=== PATIENT | female | born 1985 | race Caucasian/White ===

== ENCOUNTER 2018-04-07 22:09 | Inpatient (IN) | payer OTHER ==
--- NOTE | 2018-04-07 23:02 | HP ---
General Information - Reason for Visit Pt reports SROM to clear fluid at 2030. Denies contractions. - General Information Maternal Age: 32 Grav: 3 Para: 1 SAB: 0 IEA: 1 Estimated Due Date: 04/21/18 Determined By: LMP Gestational Age in Weeks/Days: 38 0/7 Maternal Blood Type and Rh: A Negative - Results this Serology/RPR Result: Non-Reactive Rubella Result: Non-Immune HBsAg Result: Negative HIV Result: Negative GBS Culture Result: Negative Past Medical History Delivery History: Hx Uncomplicated Vaginal Delivery Pertinent Past Medical History: See Records - asthma, migraines Pertinent Past Surgical History: None Pertinent Family History: Non-Contributory - Antepartal Records Antepartal Records: Reviewed, Complicated by: - placenta previa- resolved, Rh negative, Rubella non-immune Review of Systems Constitutional: Comfortable CV Complaint: No Respiratory: Shortness of Breath: No Gastrointestinal: No Nausea/Vomiting, Normal Bowel Movement Genitourinary: Leaking Fluid, No Dysuria, No Bleeding Musculoskeletal: No Complaint, No Epigastric Pain Neurological: No Headache, No Visual Changes Movement: Normal Exam Allergies/Adverse Reactions: Allergies No Known Allergies Allergy (Verified 04/07/18 23:02) T-97.7, P-87, O2-98%, R-16, BP-137/70 - Measurements Height: 5 ft 7 in Weight: 79.379 kg Body Mass Index (BMI): 27.3 Pre- Weight: 72.575 kg - Exam Breast: Breast Exam Deferred CVA: No CVA Tenderness Extremities: No Edema Heart: Normal Rhythm/Heart Sounds HEENT: No Significant Findings Lungs: Clear Bilaterally Rectal: Rectal Exam Deferred Reflexes: DTR 2+ Thyroid: No Thyromegaly - Abdominal Exam Abdomen Exam: Non-Tender - Ultrasound/Biophysical Profile Ultrasound Status: Not Done Targeted Exam Findings See L&D Outpatient Visit Provider Note for Findings: N/A - Cervical exam deferred as pt prefers expectant management Membrane Status: SROM Amniotic Fluid Evaluation: Gross Rupture Bleeding/Discharge: None EFM Findings - External Monitor Findings Baseline Heart Rate: 130 External Monitor Findings: Accelerations Present, No Pattern of Variable or Late Decelerations, Variability Moderate, Baseline Stable Contractions: Irregular, Mild, 45-90 Seconds Contraction Frequency: 15-20 minutes Assessment/Plan - Assessment 32 year old at 38 0/7 weeks gestation with prelabor rupture of membranes , clear fluid, GBS negative, no evidence of acidemia. - Plan Plan: Admit - Anticipate Vaginal Delivery Plan Comment: Discussed options with pt and , including initiation of augmentation with Pitocin vs expectant management. Counseled pt that the longer membranes are ruptured prior to delivery, the greater the risk of infection. Pt strongly prefers expectant management, and to await active labor. If labor not becoming active by morning, will strongly recommend augmentation of labor. - Date/Time of Admission Date of Admission: 04/07/18 Time of Admission: 22:26
[2018-04-08] MEDS ORDERED: Misoprostol TAB* 100 MCG PO ONE (09:00)
--- NOTE | 2018-04-08 09:46 | PN ---
Progress Note - Progress Note Date of Service: 04/08/18 SOAP: Subjective: [Pt denies contractions, reports continued LOF, +FM, denies VB] Objective: [T:97.9, O2: 100%, BP: 121/70, P:94 FHT: 140 bpm, +accels, -decels, moderate variability, no ctx. cervix: /ballotable] Assessment: [32 y.o. , VSS, afebrile, PROM, 38w1d EGA] Plan: [1) Reviewed plan with pt and risks versus benefits pt elects to continue with misoprostol for PROM 2) Reviewed position changes for descent 3) Reevaluate PRN]
[2018-04-08] MEDS ORDERED: Dinoprostone* 10 MG VAG.SUPP VAGINAL ONE (20:00)
[2018-04-08] MEDS ORDERED: Promethazine INJ(RESTRICTED)* 25 MG/ML 1 ML VIAL IM ONE (20:01)
[2018-04-08] MEDS ORDERED: Nalbuphine* 10 MG/ML 1 ML VIAL IM ONE (20:01)
--- NOTE | 2018-04-08 20:14 | PN ---
Progress Note - Progress Note Date of Service: 04/08/18 SOAP: Subjective: [Pt reports ctx decreasing in frequency but increasing in intensity until vaginal exam. -VB, +FM, +LOF] Objective: [BP: 114/67, P:80, R:16, T:98.8 FHT: baseline 140 bpm, + accels, -decels, moderate variability, ctx q 3 min cervix: 1/50/ballotable] Assessment: [32 y.o. , 38w1d EGA, PROM, early labor] Plan: [1) Reviewed options and pt elects to continue with cervical ripening. Pt iron after exam, will continue to monitor, if ctx stop cervidil will be placed. Reviewed R/B with pt. 2) Reevaluate in 1 hour or sooner PRN 3) Therapeutic rest PRN]
[2018-04-09 11:13] LABS: ABS Basophils 0 10^3/ul (0-0.2); ABS Eosinophils 0.1 10^3/ul (0-0.6); ABS Lymphocytes 1.3 10^3/ul (1.0-4.8); ABS Monocytes 0.4 10^3/ul (0-0.8); ABS Neutrophils 7.7 10^3/ul (1.5-7.7); ABS Nucleated RBC 0 10^3/ul; Eosinophil % 0.9 %; Hematocrit 34 % (35-47); Hemoglobin 11.5 g/dl (12.0-16.0); Lymphocyte % 13.4 %; Mean Corpuscular HGB Conc 34 g/dl (31-36); Mean Corpuscular Hemoglobin 28 pg (27-31); Mean Corpuscular Volume 82 fL (80-97); Mean Platelet Volume 8.4 fL (7.4-10.4); Nucleated Red Blood Cells % 0; Platelet Count 218 10^3/ul (150-450); Red Blood Count 4.12 10^6/ul (4.00-5.40); Red Cell Distribution Width 14 % (10.5-15); White Blood Count 9.5 10^3/ul (3.5-10.8)
--- NOTE | 2018-04-09 11:14 | PN ---
Progress Note - Progress Note Date of Service: 04/09/18 SOAP: Subjective: [Pt reports no contractions, pt rested overnight, does not remember losing cervidil overnight.] Objective: [BP: 123/65, P:64, R:16, T:97.7 FHT: 135 bpm, + accels, -decels, moderate variability, ctx 2-3 min, mild cervix: 2/80/-2] Assessment: [32 y.o. , PROM] Plan: [1) Reviewe R/B of mgmt options and pt consents to continue with pitocin augmentation low dose 2) Encourage position changes and ambulation PRN]
[2018-04-09] MEDS ORDERED: Oxytocin in LR* 20 UNITS/1,000 ML BAG IVPB ONE (11:15)
[2018-04-09] MEDS ORDERED: Docusate CAP* 100 MG PO PRN (11:49)
[2018-04-09] MEDS ORDERED: Oxytocin in LR* 20 UNITS/1,000 ML BAG IVPB SCH ×2 (12:00→22:00)
--- NOTE | 2018-04-09 16:41 | PN ---
Progress Note - Progress Note Date of Service: 04/09/18 SOAP: Subjective: [Pt reports ctx increasing in intensity and frequency. Pt coping well] Objective: [BP: 115/75, T:99.2, P:84, pitocin at 5 FHT: 145 bpm, +accels, -decels, moderate variability ] Assessment: [32 y.o. , PROM, pitocin augmentation, Cat 1 NST] Plan: [1) Hydrotherapy 2) cont current care]
[2018-04-09] MEDS ORDERED: Promethazine INJ(RESTRICTED)* 25 MG/ML 1 ML VIAL IV PRN (17:15)
[2018-04-09] MEDS ORDERED: Nalbuphine* 10 MG/ML 1 ML VIAL IV PRN (17:15)
[2018-04-09] MEDS ORDERED: Promethazine INJ(RESTRICTED)* 25 MG/ML 1 ML VIAL ONE (17:18)
[2018-04-09] MEDS ORDERED: Nalbuphine* 10 MG/ML 1 ML VIAL ONE (17:18)
[2018-04-09] MEDS ORDERED: OBEPIDURAL* 250 ML EPIDURAL ONE (17:26)
[2018-04-09] MEDS ORDERED: Sodium Citrate/Citric Acid* 15 ML UDC PO PRN (18:45)
[2018-04-09] MEDS ORDERED: Famotidine TAB* 20 MG PO PRN (18:45)
[2018-04-09] MEDS ORDERED: Phenylephrine IV* 40 MCG/ML 10 ML SYRINGE IV PUSH PRN (18:45)
[2018-04-09] MEDS ORDERED: OBEPIDURAL* 250 ML EPIDURAL SCH (19:00)
[2018-04-09] MEDS ORDERED: Ibuprofen TAB* 600 MG ONE (21:46)
[2018-04-09] MEDS ORDERED: Witch Hazel PAD* JAR TOPICAL PRN (21:50)
[2018-04-09] MEDS ORDERED: Dibucaine 1% 28.35 GM TUBE PR PRN (21:50)
[2018-04-09] MEDS ORDERED: Acetaminophen TAB* 325 MG PO PRN (21:50)
[2018-04-09] MEDS: Ibuprofen TAB* 600 MG PO PRN (21:50)
[2018-04-09] MEDS ORDERED: Glycerin ADULT SUPP PR PRN (21:50)
[2018-04-09] MEDS ORDERED: Measles, Mumps,Rubella VACC* 0.5 ML/VIAL SUBCUT ONE (21:50)
[2018-04-09] MEDS ORDERED: RHO D Immune Globulin (HUMAN)* 300 MCG = 1,500 I.U. INJ IM ONE (21:50)
--- NOTE | 2018-04-09 22:16 | PROCNOTE ---
[facility]: Delivery Note - Delivery A Date of : 04/09/18 Time of : 21:01 Sex: Male Score 1 Minute: 9 Score 5 Minutes: 9 Gestational Age in Weeks and Days at Delivery: 38 Weeks and 2 Days Delivery Method: Spontaneous Vaginal Labor: Spontaneous Amniotic Fluid: Clear Estimated Blood Loss: 300 Anesthesia/Analgesia: CEI for Labor Delivered By: Mello Joyner - Nursery Level of Nursery: Regular/Bedside - Perineum Perineal Injury: 1st Degree Perineal Injury Comment: Right labial/periurethral laceration, repaired with 3- 0 Rapid as well. Perineal Repair: By Delivering Practioner - Events Delivery Events of Note: Pitocin During Labor, Pitocin Only After Delivery, ROM > 24 Hours - Additional Delivery Notes Additional Delivery Notes: ROM approx 48 hours with slow progression of early labor after induction attempt with misoprostal, Cervidil then pitocin. Patient received epidural as desired at approx 1800 with good pain relief and quick progression to complete with pressure noted by patient. Patient encouraged to begin pushing at approx 2131. LOL 5'30", pushed 30 min. Baby born OA to KIARRA, shoulders following with maternal efforts, delivered into mothers arms and she brought to chest. Baby with spontaneous respirations, HR >110. Placenta followed with gentle cord traction @ 2107. Cord then clamped doubly and cut by FOB. Fundus firm to massage and pitocin infusing. EBL 300ml. Repair as above. Mother and baby stable. Name yandel.
[2018-04-10 07:21] LABS: ABS Basophils 0 10^3/ul (0-0.2); ABS Eosinophils 0 10^3/ul (0-0.6); ABS Lymphocytes 1.7 10^3/ul (1.0-4.8); ABS Monocytes 0.7 10^3/ul (0-0.8); ABS Neutrophils 8.6 10^3/ul (1.5-7.7); ABS Nucleated RBC 0 10^3/ul; Eosinophil % 0.4 %; Hematocrit 27 % (35-47); Hemoglobin 8.8 g/dl (12.0-16.0); Lymphocyte % 15.7 %; Mean Corpuscular HGB Conc 33 g/dl (31-36); Mean Corpuscular Hemoglobin 27 pg (27-31); Mean Corpuscular Volume 82 fL (80-97); Mean Platelet Volume 7.9 fL (7.4-10.4); Nucleated Red Blood Cells % 0.1; Platelet Count 183 10^3/ul (150-450); Red Blood Count 3.25 10^6/ul (4.00-5.40); Red Cell Distribution Width 14 % (10.5-15); White Blood Count 11.1 10^3/ul (3.5-10.8)
[2018-04-10] MEDS: Docusate CAP* 100 MG PO SCH ×3 (09:44→21:07)
[2018-04-10] MEDS: Ferrous Gluconate TAB* 324 MG TAB PO SCH ×2 (10:03→21:07)
[2018-04-10] MEDS: Ibuprofen TAB* 600 MG PO PRN (17:46)
[2018-04-11] MEDS: Docusate CAP* 100 MG PO SCH (08:31)
[2018-04-11] MEDS: Ferrous Gluconate TAB* 324 MG TAB PO SCH (08:31)
[2018-04-11] MEDS: Ibuprofen TAB* 600 MG PO PRN (08:31)
[2018-04-11 08:35] VITALS: BP 103/73
== END 2018-04-11 12:27 | disposition home or self-care (01) | DRG 560 ==
LOC: MCHOBOUT 22:09 → MCHOB 22:26
PROVIDERS: ADMIT Midwife; ATTEND Midwife
PROC: 10E0XZZ Delivery of Products of Conception, External Approach (ICD-10-PCS; principal; 2018-04-09)
PROC: 0HQ9XZZ Repair Perineum Skin, External Approach (ICD-10-PCS; 2018-04-09)
DX: O42.12 Full-term premature rupture of membranes, onset of labor more than 24 hours following rupture (principal); Z37.0 Single live birth; O70.0 First degree perineal laceration during delivery; O90.81 Anemia of the puerperium; D64.9 Anemia, unspecified; Z3A.38 38 weeks gestation of pregnancy
CPT/HCPCS: 36415; 84112; 85025; 85461; 86850; 86870; 86880; 86900; 86901; A9270-GY; J2300; J2550; J2790; S0191

== ENCOUNTER 2019-08-20 07:30 | Day surgery (SDC) | payer OTHER ==
[~2019-08-20 07:30] MED LIST: DOXYcycline IV 200 MG in NS 250 mL *Pre-Op OBGYN IVPB ONE; Dexamethasone IV* 4 MG/ML 1 ML (4 MG) ONE; KETAMINE HCL* 50 MG/ML 10 ML VIAL ONE; Ketorolac INJ* 30 MG/ML 1 ML VIAL ONE; Lidocaine 2% PF * 5 ML VIAL ONE; Midazolam* 1 MG/ML 5 ML VIAL (5 MG) ONE; Ondansetron INJ* 2 MG/ML VIAL ONE; Propofol* 10 MG/ML 20 ML BTL ONE; Succinylcholine* 20 MG/ML 10 ML VIAL ONE; fentaNYL* 50 MCG/ML 2 ML VIAL (100 MCG VIAL) ONE
[2019-08-20] MEDS ORDERED: Buffered Lidocaine 1% SYRIN* 1 ML/SYRINGE INTRADERM ONE ×2 (07:38→07:43)
[2019-08-20] MEDS ORDERED: Famotidine IV* 10 MG/ML 2 ML (20 mg) ONE (07:38)
[2019-08-20] MEDS ORDERED: Famotidine IV* 10 MG/ML 2 ML (20 mg) IV ONE (07:43)
[2019-08-20] MEDS ORDERED: Lactated Ringers 1000 ML Bag* 1,000 ML IV SCH (08:00)
[2019-08-20] MEDS ORDERED: Midazolam* 1 MG/ML 2 ML VIAL (2 MG) ONE (08:50)
[2019-08-20] MEDS ORDERED: Chloroprocaine 2%* 20 ML VIAL ONE (08:53)
[2019-08-20] MEDS ORDERED: oxyCODONE/Acetamin 5/325 MG* TAB PO PRN (09:48)
[2019-08-20] MEDS ORDERED: Naloxone* 0.4 MG/ML 1 ML VIAL IV PRN (09:48)
[2019-08-20] MEDS ORDERED: Ondansetron INJ* 2 MG/ML VIAL IV PRN (09:48)
[2019-08-20] MEDS ORDERED: fentaNYL* 50 MCG/ML 2 ML VIAL (100 MCG VIAL) IV PRN (09:48)
[2019-08-20 11:53] VITALS: BP 117/56
--- NOTE | 2019-08-20 19:57 | OP ---
OPERATIVE REPORT: DATE OF OPERATION: 08/20/19 - SDS DATE OF : 83 SURGEON: Galo Modi MD ANESTHESIOLOGIST: Dr. Hammer. ANESTHESIA: Spinal. PRE-OP DIAGNOSIS: Missed at about 10 weeks' gestation. POST-OP DIAGNOSIS: Missed at about 10 weeks' gestation. OPERATIVE PROCEDURE: Suction dilation and curettage. ESTIMATED BLOOD LOSS: 50 cc. URINE OUTPUT: 100 cc. IV FLUIDS: 1000 cc lactated Ringer's. MATERIALS TO LAB: Products of conception. INDICATIONS: This patient is a 33-year-old 4, para 2-0-2-2, diagnosed with a missed at about 10 weeks last week. By dates, the patient should have been over 12 weeks and the ultrasound showed a fetus without cardiac activity measuring about 10 weeks. She was counseled regarding her options and she decided to proceed with a D and C, as she had had unpleasant results with medical management previously. The patient was extensively counseled and consent was signed. FINDINGS: Fairly large amount of intrauterine tissue and fluid. Uterine contents were completely evacuated without difficulty. COMPLICATIONS: None. DESCRIPTION OF PROCEDURE: The risks, benefits, and alternatives were described to the patient and informed consent was obtained. The patient was taken to the operating room with IV running where spinal anesthesia was induced, found to be adequate. She was prepped and draped in the normal sterile fashion in the high lithotomy position and Cecilio stirrups. A time-out was performed. The bladder was emptied. A bivalved speculum was placed in the vagina and a single-tooth tenaculum was placed on the anterior cervix. The uterus sounded to about 12 cm. The cervix was then gently dilated using Hanks dilators to a maximum size at about 30. At that time, a size 10 curved suction curette was advanced through the cervix and into uterine cavity. Suction was activated and the intrauterine contents were fully removed with 3 to 4 passes with a suction curette. A gentle curettage was performed using a medium Banjo curette and there was no additional tissue remaining. At that time, bleeding was minimal. The tenaculum was removed and pressure was applied to the cervix with a sponge stick. There was minimal bleeding present at that time. The speculum was then removed and the patient was then returned to the supine position. The patient tolerated the procedure well. Sponge, lap, and needle counts were correct x2. [id number]/[facility] #: [id number] [facility]
== END 2019-08-20 12:06 | disposition home or self-care (01) ==
LOC: OR 07:30
PROVIDERS: ATTEND Obstetrics & Gynecology
DX: O02.1 Missed abortion (principal); J45.909 Unspecified asthma, uncomplicated
CPT/HCPCS: 88305; J0330; J1100; J1885; J2250; J2400; J2405; J2704; J3010